=== PATIENT | female | born 1965 | race African-American/Black ===

== ENCOUNTER 2016-08-06 22:50 | Emergency (ER) | payer MEDICAID ==
[~2016-08-06] VITALS: Ht 157.5 cm; Wt 66.2 kg
[2016-08-06 22:50] VITALS: BP 158/92
[2016-08-06 23:37] LABS: Basophils # (auto) 0 uL; Basophils % (auto) 0.3 % (0.0-2.0); DEFINITIVE VIEW TRANSMISSION; Eosinophils # (auto) 0.2 uL; Eosinophils % (auto) 1.8 % (0.0-7.0); Hematocrit 42.5 % (36.0-46.0); Hemoglobin 13.8 g/dL (12.2-16.2); Lymphocytes # (auto) 2.6 uL; Lymphocytes % (auto) 28.4 % (10.0-50.0); Mean Corpuscular Hemoglobin 24.9 pg (28.0-32.0); Mean Corpuscular Hgb Conc. 32.3 g/dL (32.0-36.0); Mean Platelet Volume 7.7 fL (7.4-10.4); Monocytes # (auto) 0.3 uL; Monocytes % (auto) 3.1 % (0.0-12.0); Neutrophils % (auto) 66.4 % (37.0-80.0); Platelet Count (auto) 265 10^3/uL (140-450); Red Cell Distribution Width 16.1 % (11.6-16.0)
[2016-08-06 23:52] LABS: Albumin 4.5 g/dL (3.4-5.0); BUN/Creatinine Ratio 17.1; Calcium 9.1 mg/dL (8.5-10.1); Potassium 3.4 mmol/L (3.5-5.1)
[2016-08-06 23:55] LABS: Bilirubin, Total 0.5 mg/dL (0.2-1.0); Total Protein 9.2 g/dL (6.4-8.2)
== END 2016-08-07 02:09 | disposition left against medical advice (07) ==
LOC: ER 22:50
DX: R51 Headache (principal); Z53.21 Procedure and treatment not carried out due to patient leaving prior to being seen by health care provider
CPT/HCPCS: 36415; 70450; 80053; 85025

== ENCOUNTER 2023-02-24 07:42 | Emergency (ER) | payer MEDICAID ==
[~2023-02-24] VITALS: Ht 162.6 cm; Wt 59.5 kg
[2023-02-24 08:36] VITALS: BP 138/69; PULSE 56; RESP 16; TEMP 97.5; O2SAT 98
[2023-02-24] MEDS ORDERED: METH-1181 PO (09:25)
[2023-02-24] MEDS ORDERED: IBUP-1454 PO (09:25)
== END 2023-02-24 09:29 | disposition home or self-care (01) ==
LOC: ER 07:42
DX: S46.912A Strain of unspecified muscle, fascia and tendon at shoulder and upper arm level, left arm, initial encounter (principal); R51.9 Headache, unspecified; I10 Essential (primary) hypertension; Z79.1 Long term (current) use of non-steroidal anti-inflammatories (NSAID); Z79.899 Other long term (current) drug therapy; W01.0XXA Fall on same level from slipping, tripping and stumbling without subsequent striking against object, initial encounter; Y93.89 Activity, other specified; Y92.89 Other specified places as the place of occurrence of the external cause; Y99.8 Other external cause status
CPT/HCPCS: 70450; 73030

== ENCOUNTER 2023-10-15 07:40 | Emergency (ER) | payer MEDICAID ==
[~2023-10-15] VITALS: Ht 162.6 cm; Wt 62.4 kg
[~2023-10-15 07:40] MED LIST: IBUP-1454 PO; METH-1181 PO
[2023-10-15 08:09] LABS: Basophils # (auto) 0 10 ^3/uL (0-0.2); Basophils % (auto) 0.8 % (0.0-2.0); Eosinophils # (auto) 0.1 10 ^3/uL (0-0.8); Hemoglobin 11.4 g/dL (12.2-16.2); Lymphocytes # (auto) 1.9 10 ^3/uL (0.4-5.4); Mean Corpuscular Hgb Conc. 31.7 g/dL (32.0-36.0); Mean Corpuscular Volume 78.9 fL (80.0-100.0); Monocytes # (auto) 0.2 10 ^3/uL (0-1.3); Monocytes % (auto) 5.6 % (0.0-12.0); Neutrophils # (auto) 1.5 10 ^3/uL (1.6-8.6); Neutrophils % (auto) 40.6 % (37.0-80.0); Nucleated Red Blood Cells % 0.1 %; Red Blood Cells 4.57 10^6/uL (4.0-5.20); Red Cell Distribution Width 15.1 % (11.8-14.3); White Blood Cell 3.8 10^3/uL (4.4-10.8)
[2023-10-15 08:19] LABS: INR 0.99 (0.9-1.15); Partial Thromboplastin Time 24.4 SEC (24.5-34.5); Prothrombin Time 10.5 sec (9.3-11.8)
[2023-10-15 08:30] LABS: Alanine Aminotransferase 10 U/L (7-40); Albumin 4.1 g/dL (3.2-4.8); Alkaline Phosphatase 47 U/L (46-116); Anion Gap 1 (5-15); Aspartate Aminotransferase 12 U/L (13-40); BUN/Creatinine Ratio 15.6 (10.0-20.0); Bilirubin, Total 0.4 mg/dL (0.2-1.0); Blood Urea Nitrogen 12 mg/dL (9-23); Calcium 9.4 mg/dL (8.5-10.1); Carbon Dioxide 31 mmol/L (20-30); Chloride 109 mmol/L (98-107); Glucose 98 mg/dL (74-106); Potassium 3.9 mmol/L (3.5-5.1); Sodium 141 mmol/L (136-145); Total Protein 6.6 g/dL (5.7-8.2)
[2023-10-15 08:43] LABS: Urine Bacteria None Seen /hpf (None Seen)
[2023-10-15] MEDS: SODIUM CHLORIDE 0.9% 1,000 ML IV ONE (08:59)
[2023-10-15 09:00] VITALS: PULSE 47; RESP 16; O2SAT 100
[2023-10-15] MEDS: ASPirin 81 mg TAB PO ONE (09:00)
[2023-10-15 09:06] LABS: Urine Blood Negative /uL (Negative); Urine Clarity Clear (Clear); Urine Color Light-Yellow (Yellow); Urine Protein, UAD Negative (Negative); Urine Specific Gravity 1.017 (1.001-1.035); Urine Urobilinogen Normal (Negative); Urine WBC 2 /hpf (0 - 5); Urine pH 6.5 (5.0-9.0)
[2023-10-15 09:30] VITALS: PULSE 52; RESP 12; TEMP 98.5; O2SAT 98
[2023-10-15] MEDS: cloNIDine HCL 0.1 MG TAB PO ONE (09:42)
[2023-10-15 11:40] VITALS: BP 165/112; PULSE 45; RESP 10; O2SAT 96
[2023-10-15] MEDS: LABETALOL HCL 5 MG/ML 4ML SYRINGE IV ONE (11:49)
[2023-10-15] MEDS: hydrALAZINE HCL 20 MG/ML VL IV ONE (11:53)
== END 2023-10-15 11:44 | disposition left against medical advice (07) ==
LOC: ER 07:40
DX: I10 Essential (primary) hypertension (principal); M75.02 Adhesive capsulitis of left shoulder; R07.89 Other chest pain; F12.90 Cannabis use, unspecified, uncomplicated; Z98.890 Other specified postprocedural states; Z79.899 Other long term (current) drug therapy
CPT/HCPCS: 36415; 71046; 80053; 81001; 83735; 84484; 85025; 85610; 85730; 93005; 96361; 96374; 99285; J0360; J7030; J3490